=== PATIENT | male | born 1985 | race Caucasian/White ===

== ENCOUNTER 2016-10-31 17:28 | Emergency (ER) | payer BC, OTHER ==
[~2016-10-31] VITALS: Ht 172.7 cm; Wt 78.1 kg
[2016-10-31 17:30] VITALS: TEMP 36.7; Ht 172.7 cm; Wt 78.1 kg
[2016-10-31] MEDS ORDERED: ONDANSETRON INJ 2 MG/ML 2 ML VIAL IV STA (17:39)
[2016-10-31] MEDS ORDERED: MoRPHine SULFATE 4 MG/ML 1 ML CARP\\VIAL IV STA ×2 (17:39→19:16)
[2016-10-31] MEDS ORDERED: BUPRTAB51 PO (17:46)
[2016-10-31] MEDS ORDERED: ESOM20CA PO (17:46)
[2016-10-31 17:59] LABS: BASO % 0.3 %; BASO ABS # 0.02 K/uL (0-0.2); COMPLETE YES; EOS % 2.2 %; HEMATOCRIT 49.1 % (42-52); IG% 0.3 %; LYMPH % 34.1 %; LYMPH ABS # 2.45 K/uL (1.2-3.4); MEAN CELL VOLUME 94.4 fL (80-100); MEAN PLATELET VOLUME 10.8 fL (7.4-10.4); MONO % 10.4 %; NEUT % 52.7 %; PLATELET COUNT 244 K/uL (130-400); WHITE BLOOD COUNT 7.19 K/uL (4.8-10.8)
[2016-10-31 18:14] LABS: URINE APPEARANCE CLEAR (CLEAR); URINE BILIRUBIN NEG (NEG); URINE COLOR YELLOW; URINE EPITHELIAL CELL AUTO 0-5 /lpf (0-5); URINE NITRITE NEG (NEG); URINE PH 7.5 (4.5-7.5); URINE SPECIFIC GRAVITY 1.006 (1.000-1.030); UROBILINOGEN NEG (NEG)
[2016-10-31 18:15] LABS: MANUAL MICROSCOPIC REQUIRED? NO; REVIEW REQ? NO
[2016-10-31 18:43] LABS: ALKALINE PHOSPHATASE 104 U/L (45-117); ALT/SGPT 84 U/L (12-78); BLOOD UREA NITROGEN 10 mg/dl (7-18); CALCIUM 9.1 mg/dl (8.5-10.1); CARBON DIOXIDE 28 mmol/L (21-32); CHLORIDE 104 mmol/L (98-107); GLUCOSE 91 mg/dl (70-99)
[2016-10-31] MEDS ORDERED: ALUMINUM/MAGNESIUM SUSP 30 ML UDC PO STA (18:50)
[2016-10-31] MEDS ORDERED: LIDOCAINE HCL 2% VISC SOLN 20 ML UDC PO STA (18:50)
[2016-10-31] MEDS ORDERED: OPTIRAY 320 IV PRN (19:30)
--- NOTE | 2016-10-31 19:48 | DIAGNOSTIC IMAGING REPORT ---
CT SCAN OF THE ABDOMEN AND PELVIS WITH IV CONTRAST CLINICAL HISTORY: Epigastric abdominal pain. COMPARISON STUDY: Abdominal ultrasound dated 07/20/2016. TECHNIQUE: Following the IV administration of 93 cc of Optiray 320, CT scan of the abdomen and pelvis is performed from the lung bases to the proximal femora. Images are reviewed in the axial, sagittal, and coronal planes. IV contrast was administered without complication. Automated dose control exposure was utilized. CT DOSE: 305.32 mGy.cm FINDINGS: Lung bases: The heart is normal in size and without pericardial effusion. The lung bases are clear noting dependent atelectasis. Liver: The contrast-enhanced liver is top normal in size measuring 17.6 cm in length. The liver demonstrates diffusely diminished attenuation consistent with hepatic steatosis. Fatty sparing is seen adjacent to the gallbladder fossa. There is no intrahepatic biliary ductal dilatation. The hepatic veins and portal veins are patent. Gallbladder: Unremarkable. Spleen: Normal in size and attenuation. Pancreas: Unremarkable. Adrenal glands: Unremarkable. Kidneys: The contrast enhanced kidneys are normal in size and without hydronephrosis. The kidneys enhance symmetrically. Abdominal vasculature: The abdominal aorta is normal in course and caliber. Bowel: The small bowel and colon are normal in course and caliber. The appendix is well-visualized and normal. Peritoneum: There is no intraperitoneal free air or abdominal ascites. Lymphadenopathy: None. Pelvic viscera: The bladder, prostate, and seminal vesicles are normal as visualized. Skeletal structures: No lytic or blastic lesions are seen. IMPRESSION: 1. There are no acute infectious or inflammatory findings in the abdomen or pelvis. 2. Hepatic steatosis. Electronically signed by: Aden Graham M.D. 10/31/2016 7:47 PM Dictated Date/Time: 10/31/2016 7:42 PM
[2016-10-31 19:53] LABS: SODIUM 142 mmol/L (136-145)
[2016-10-31] MEDS ORDERED: SUCRALFATE 1 GM TAB PO ONE (20:30)
[2016-10-31] MEDS ORDERED: SUCR1TAB29 PO (21:42)
[2016-10-31 21:47] VITALS: BP 131/78; PULSE 70; O2SAT 99
--- NOTE | 2016-10-31 21:55 | EMERGENCY ROOM VISIT NOTE ---
History Report prepared by Jesus: Renee Merrill Under the Supervision of: Dr. Dre Nguyen M.D. First contact with patient: 17:33 Chief Complaint: GI ASSESSMENT Stated Complaint: REFERRED BY MD FOR POSSIBLE PANCREATITIS History of Present Illness The patient is a 31 year old male who presents to the Emergency Room for a GI assessment. The patient has been experiencing LUQ abdominal pain for the past 6 hours. He rates his pain as a 7/10 in severity. He states that he has had similar pains on and off for years, but has not had any pain for at least 6 months. Today the patient's pain is worse than it has ever been before. He went to Urgent Care today for his symptoms, and he was sent to the ED for further evaluation. The patient denies the pain radiating anywhere else or radiating into his back. He denies fever, vomiting, black or bloody stools, diarrhea, and urinary symptoms. He has not had any recent endoscopies. The patient drinks alcohol. He estimates that he has 2-3 drinks every day and more on the weekends. He has been drinking more heavily for the past few years. Source of History: patient Onset: 6 hours ago Position: abdomen (LUQ) Symptom Intensity: 7/10 Timing: constant Associated Symptoms: No back pain, No diarrhea, No fevers, No hematochezia, No melena, No urinary symptoms Review of Systems See HPI for pertinent positives & negatives. A total of 10 systems reviewed and were otherwise negative. Past Medical & Surgical Medical Problems: (1) No significant active problems Family History No pertinent history stated. Social History Smoking Status: Current Every Day Smoker Alcohol Use: heavy Current/Historical Medications Scheduled Bupropion (Wellbutrin-Xl), 300 MG PO BID Esomeprazole Magnesium (Nexium), 20 MG PO BID Sucralfate (Carafate), 1 TAB PO BID Allergies Coded Allergies: No Known Allergies (Unverified , 10/31/16) Physical Exam Vital Signs Date Time Temp Pulse Resp B/P Pulse Ox O2 Delivery O2 Flow Rate FiO2 10/31/16 21:47 70 20 131/78 99 10/31/16 21:05 57 20 132/85 98 Room Air 10/31/16 19:00 60 20 136/86 97 Room Air 10/31/16 17:30 36.7 84 16 134/92 96 Room Air Physical Exam Constitutional: Vital signs reviewed. Eyes: Pupils are equal round reactive to light. Conjunctiva are noninjected. ENT: Pharynx is clear without erythema or exudate. Mucous membranes are moist. Neck supple without meningeal signs. Respiratory: Clear to auscultation bilaterally. Breath sounds are equal bilaterally. Cardiovascular: Regular rate and rhythm. No rubs or gallops. GI: Soft, nondistended. LUQ tenderness, no guarding. Bowel sounds are present. Musculoskeletal: No peripheral edema. No CVA tenderness. Integumentary: No cyanosis. Neurological: The patient is awake and alert. No focal deficits. Psychiatric: Normal affect. Medical Decision & Procedures ER Provider Diagnostic Interpretation: Radiology results as stated below per my review and the radiologist's interpretation: CT SCAN OF THE ABDOMEN AND PELVIS WITH IV CONTRAST CLINICAL HISTORY: Epigastric abdominal pain. COMPARISON STUDY: Abdominal ultrasound dated 07/20/2016. TECHNIQUE: Following the IV administration of 93 cc of Optiray 320, CT scan of the abdomen and pelvis is performed from the lung bases to the proximal femora. Images are reviewed in the axial, sagittal, and coronal planes. IV contrast was administered without complication. Automated dose control exposure was utilized. CT DOSE: 305.32 mGy.cm FINDINGS: Lung bases: The heart is normal in size and without pericardial effusion. The lung bases are clear noting dependent atelectasis. Liver: The contrast-enhanced liver is top normal in size measuring 17.6 cm in length. The liver demonstrates diffusely diminished attenuation consistent with hepatic steatosis. Fatty sparing is seen adjacent to the gallbladder fossa. There is no intrahepatic biliary ductal dilatation. The hepatic veins and portal veins are patent. Gallbladder: Unremarkable. Spleen: Normal in size and attenuation. Pancreas: Unremarkable. Adrenal glands: Unremarkable. Kidneys: The contrast enhanced kidneys are normal in size and without hydronephrosis. The kidneys enhance symmetrically. Abdominal vasculature: The abdominal aorta is normal in course and caliber. Bowel: The small bowel and colon are normal in course and caliber. The appendix is well-visualized and normal. Peritoneum: There is no intraperitoneal free air or abdominal ascites. Lymphadenopathy: None. Pelvic viscera: The bladder, prostate, and seminal vesicles are normal as visualized. Skeletal structures: No lytic or blastic lesions are seen. IMPRESSION: 1. There are no acute infectious or inflammatory findings in the abdomen or pelvis. 2. Hepatic steatosis. Electronically signed by: Aden Graham M.D. 10/31/2016 7:47 PM Dictated Date/Time: 10/31/2016 7:42 PM Laboratory Results 10/31/16 17:45 Red Blood Count 5.20, Mean Corpuscular Volume 94.4, Mean Corpuscular Hemoglobin 34.0, Mean Corpuscular Hemoglobin Concent 36.0, Mean Platelet Volume 10.8, Neutrophils (%) (Auto) 52.7, Lymphocytes (%) (Auto) 34.1, Monocytes (%) (Auto) 10.4, Eosinophils (%) (Auto) 2.2, Basophils (%) (Auto) 0.3, Neutrophils # (Auto ) 3.79, Lymphocytes # (Auto) 2.45, Monocytes # (Auto) 0.75, Eosinophils # (Auto ) 0.16, Basophils # (Auto) 0.02 10/31/16 17:45 10/31/16 20:00 Test 10/31/16 17:40 10/31/16 17:45 10/31/16 20:00 Urine Color YELLOW Urine Appearance CLEAR (CLEAR) Urine pH 7.5 (4.5-7.5) Urine Specific [place] 1.006 (1.000-1.030) Urine Protein NEG (NEG) Urine Glucose (UA) NEG (NEG) Urine Ketones NEG (NEG) Urine Occult Blood NEG (NEG) Urine Nitrite NEG (NEG) Urine Bilirubin NEG (NEG) Urine Urobilinogen NEG (NEG) Urine Leukocyte Esterase TRACE (NEG) Urine WBC (Auto) 1-5 /hpf (0-5) Urine RBC (Auto) 0-4 /hpf (0-4) Urine Hyaline Casts (Auto) 0 /lpf (0-5) Urine Epithelial Cells (Auto) 0-5 /lpf (0-5) Urine Bacteria (Auto) NEG (NEG) White Blood Count 7.19 K/uL (4.8-10.8) Red Blood Count 5.20 M/uL (4.7-6.1) Hemoglobin 17.7 g/dL (14.0-18.0) Hematocrit 49.1 % (42-52) Mean Corpuscular Volume 94.4 fL (80-100) Mean Corpuscular Hemoglobin 34.0 pg (25-34) Mean Corpuscular Hemoglobin Concent 36.0 g/dl (32-36) Platelet Count 244 K/uL (130-400) Mean Platelet Volume 10.8 fL (7.4-10.4) Neutrophils (%) (Auto) 52.7 % Lymphocytes (%) (Auto) 34.1 % Monocytes (%) (Auto) 10.4 % Eosinophils (%) (Auto) 2.2 % Basophils (%) (Auto) 0.3 % Neutrophils # (Auto) 3.79 K/uL (1.4-6.5) Lymphocytes # (Auto) 2.45 K/uL (1.2-3.4) Monocytes # (Auto) 0.75 K/uL (0.11-0.59) Eosinophils # (Auto) 0.16 K/uL (0-0.5) Basophils # (Auto) 0.02 K/uL (0-0.2) RDW Standard Deviation 41.9 fL (36.4-46.3) RDW Coefficient of Variation 12.3 % (11.5-14.5) Immature Granulocyte % (Auto) 0.3 % Immature Granulocyte # (Auto) 0.02 K/uL (0.00-0.02) Anion Gap 10.0 mmol/L (3-11) Est Creatinine Clear Calc Drug Dose 93.2 ml/min Estimated GFR () 102.4 Estimated GFR (Non- 88.4 BUN/Creatinine Ratio 9.0 (10-20) Calcium Level 9.1 mg/dl (8.5-10.1) Total Bilirubin 0.5 mg/dl (0.2-1) Alanine Aminotransferase (ALT/SGPT) 84 U/L (12-78) Alkaline Phosphatase 104 U/L (45-117) Total Protein 8.1 gm/dl (6.4-8.2) Albumin 4.2 gm/dl (3.4-5.0) Lipase 111 U/L (73-393) Direct Bilirubin 0.1 mg/dl (0-0.2) Aspartate Amino Transf (AST/SGOT) 29 U/L (15-37) Laboratory results as reviewed by me. Medications Administered Medications (Trade) Dose Ordered Sig/Damien Route Start Time Stop Time Status Last Admin Dose Admin Morphine Sulfate (MoRPHine SULFATE INJ) 4 mg ONE STAT IV 10/31/16 17:39 10/31/16 17:40 DC 10/31/16 17:54 4 MG Ondansetron HCl (Zofran Inj) 4 mg NOW STAT IV 10/31/16 17:39 10/31/16 17:40 DC 10/31/16 17:54 4 MG Lidocaine HCl (Viscous Lidocaine 2% Soln) 10 ml NOW STAT PO 10/31/16 18:50 10/31/16 18:51 DC 10/31/16 18:57 10 ML Al Hydroxide/Mg Hydroxide (Maalox Susp) 30 ml NOW STAT PO 10/31/16 18:50 10/31/16 18:51 DC 10/31/16 18:56 30 ML Morphine Sulfate (MoRPHine SULFATE INJ) 4 mg NOW STAT IV 10/31/16 19:16 10/31/16 19:18 DC 10/31/16 19:22 4 MG Sucralfate (Carafate Tab) 1 gm NOW ONCE PO 10/31/16 20:30 10/31/16 20:31 DC 10/31/16 20:25 1 GM ECG Indication: abdominal pain Rate (beats per minute): 56 Rhythm: sinus bradycardia Findings: no acute ischemic change, no ectopy ED Course 173: The patient was evaluated in room C6. A complete history and physical exam was performed. 1739: Zofran 4 mg IV, Morphine sulfate 4 mg IV 1844: I reassessed the patient at this time. He is still having some pain. 1850: Maalox Susp 30 ml PO, Lidocaine HCl 10 ml PO 1915: Morphine sulfate 4 mg IV 2000: I updated the patient with his CT results. 2030: Sucralfate 1 gm PO 2136: I reassessed the patient at this time. He is feeling better and resting comfortably. I discussed the results and treatment plan with the patient. I answered all pertaining questions that he had. He expressed understanding and verbalized agreement. The patient will be discharged home. Medical Decision This is a 31-year-old male who presents with abdominal pain. Differential diagnosis includes pancreatitis, cholelithiasis, choledocholithiasis, peptic ulcer disease, irritable bowel syndrome. I did perform a limited focused review of portions of the patient's old chart on the electronic medical record. The patient had an US of the RUQ in June which showed multiple gallbladder polyps but no gallstones. I did evaluate the patient as noted above. The patient is presenting with left upper quadrant abdominal pain. He states she has been having it intermittently for years but recently it has gotten worse. He was sent here for evaluation of possible pancreatitis. He is tender in the left upper quadrant without guarding. IV access was established. I did treat patient with IV morphine and Zofran. He did have improvement of his symptoms but still had pain. He is given a GI cocktail. I did order and personally review the patient's 12-lead EKG as described above. I did order a urinalysis which was unremarkable. I did order and review the patient's blood work as noted in the electronic medical record. He has a slight elevation of his ALT but otherwise his LFTs were unremarkable. Lipase was not elevated. White blood cell count is not elevated. I did reassess the patient. He is still having pain and so was given additional morphine IV. Because of his continued pain I did recommend imaging studies. I did order a CT of the abdomen and pelvis. I did review the images myself as well as the radiology report as described above. There is no evidence of acute process on CT scanning. I did discuss the test results with the patient. At this time the exact cause of his symptoms is unclear. He does drink alcohol every day and started recommend he stop drinking that. He does take a proton pump inhibitor and so I did recommend Carafate in addition to this as well as close follow with a regular physician and gastroenterology. The patient was given a prescription for Carafate and discharged in good condition. He was given his first dose of Carafate here. He was given return instructions as outlined below. Impression Primary Impression: Abdominal pain, left upper quadrant Scribe Attestation The scribe's documentation has been prepared under my direct and personally reviewed by me in its entirety. I confirm that the note above accurately reflects all work, treatment, procedures, and medical decision making performed by me. Departure Information Dispostion Home / Self-Care Prescriptions Sucralfate (CARAFATE) 1 Gm Tab 1 TAB PO BID, #30 TAB 1 Refill Prov: Dre Nguyen M.D. 10/31/16 Referrals Cally Martinez M.D. (PCP) Forms HOME CARE DOCUMENTATION FORM, IMPORTANT VISIT INFORMATION Patient Instructions ED Abd Pain Unkn Cause Male, My [facility] Additional Instructions You have been examined and treated today on an emergency basis only. This is not a substitute for, or an effort to provide, complete comprehensive medical care. It is impossible to recognize and treat all injuries or illnesses in a single emergency department visit. It is therefore important that you follow up closely with a regular physician as well as Dr Dozier of gastroenterology. Call as soon as possible for an appointment. Return for worsening symptoms or if you develop fever, vomiting, black or tarry stools, chest pain, shortness of breath or any other concerning symptoms.
== END 2016-10-31 21:48 | disposition home or self-care (01) ==
LOC: C.EDB 17:29 → C.EDC 21:48
DX: R10.12 Left upper quadrant pain (principal); F17.210 Nicotine dependence, cigarettes, uncomplicated; Z79.899 Other long term (current) drug therapy